=== PATIENT | male | born 1955 | race Caucasian/White ===

== ENCOUNTER 2017-10-22 19:39 | Outpatient (REF) | payer BC, SELFPAY ==
[2017-10-25 08:00] LABS: Vitamin D 25 Total 37.7 ng/ml (30-100)
== END 2017-10-22 19:59 ==
LOC: NCHCN 19:39
PROVIDERS: PCP Registered Nurse; Visit Provider Registered Nurse
DX: E83.51 Hypocalcemia (principal)
CPT/HCPCS: 82306

== ENCOUNTER 2018-03-15 11:12 | Outpatient (REF) | payer BC, SELFPAY ==
[2018-03-16 11:04] LABS: HCT 47.2 % (40.0-50.0); HGB 15.7 g/dL (13.5-17.5); Mean Corp. HGB Concentration 33.3 g/dL (32.0-36.0); Mean Corpuscular Hemoglobin 30.2 pg (27.0-33.0); Mean Corpuscular Volume 90.8 fL (80-95); Mean Platelet Volume 10.9 fL (8.0-11.0); Platelet Count 293 x1000/uL (130-400); RBC Distribution Width 13.8 % (11.8-14.1); White Blood Cell Count 7.07 k/cumm (4.4-10.8)
[2018-03-16 11:30] LABS: Anion Gap 12.1 mmol/L (3-11); BUN 21 mg/dL (7-18); CO2 25.9 mmol/L (21.0-32.0); CREATININE 1.15 mg/dL (0.70-1.30); Calcium 9.4 mg/dL (8.5-10.1); Chloride 102 mmol/L (98-107); Glucose 96 mg/dL (70-100); NT-proBNP 14 pg/mL; Potassium 4.3 mmol/L (3.5-5.1); Sodium 140 mmol/L (136-145); TSH 2.22 uIU/mL (0.358-3.74)
== END 2018-03-15 11:32 ==
LOC: NCHCN 11:12
PROVIDERS: PCP Registered Nurse; Visit Provider Registered Nurse
DX: R06.09 Other forms of dyspnea (principal)
CPT/HCPCS: 80048; 85027; 83880; 84443

== ENCOUNTER 2019-07-26 10:47 | Outpatient (REF) | payer BC, SELFPAY ==
[2019-07-26 22:27] LABS: Anion Gap 10.2 mmol/L (3-11); BUN 16 mg/dL (7-18); CO2 24.8 mmol/L (21.0-32.0); CREATININE 1.18 mg/dL (0.70-1.30); Calcium 8.9 mg/dL (8.5-10.1); Calculated LDL 116 mg/dL (<100); Chloride 106 mmol/L (98-107); Cholesterol 179 mg/dL (<200); Glucose 95 mg/dL (74-106); HDL Cholesterol 53 mg/dL (40-60); Potassium 4.5 mmol/L (3.5-5.1); Sodium 141 mmol/L (136-145); Triglyceride 54 mg/dL (<150)
[2019-07-27 17:13] LABS: Rheumatoid Factor <8.6 IU/mL (<12.0)
[2019-07-28 09:58] LABS: PSA, Screening 0.5 ng/mL (0.0-4.5)
[2019-07-28 10:12] LABS: Lyme Ab w Rflx to Lyme Confirm Negative (Negative)
[2019-07-28 15:07] LABS: ANA Interpretation Negative (Negative)
== END 2019-07-26 11:07 ==
LOC: NCHCN 10:47
PROVIDERS: PCP Registered Nurse; Visit Provider Registered Nurse
DX: E78.5 Hyperlipidemia, unspecified (principal); R94.4 Abnormal results of kidney function studies; Z00.00 Encounter for general adult medical examination without abnormal findings; Z12.5 Encounter for screening for malignant neoplasm of prostate
CPT/HCPCS: 80048; 80061; 84153; 86038; 86431; 86618

== ENCOUNTER 2020-07-31 15:14 | Outpatient (REF) | payer BC, SELFPAY ==
[2020-07-31 22:27] LABS: ALT 42 U/L (16-63); AST 28 U/L (15-37); Albumin 4.2 g/dL (3.4-5.0); Alkaline Phosphatase 66 U/L (46-116); Anion Gap 7.5 mmol/L (3-11); BUN 16 mg/dL (7-18); Bilirubin, Total 1.1 mg/dL (0.2-1.0); CO2 29.5 mmol/L (21.0-32.0); CREATININE 1.1 mg/dL (0.70-1.30); Calcium 9.4 mg/dL (8.5-10.1); Calculated LDL 135 mg/dL (<100); Chloride 104 mmol/L (98-107); Cholesterol 214 mg/dL (<200); Glucose 88 mg/dL (74-106); HDL Cholesterol 53 mg/dL (40-60); Potassium 4.6 mmol/L (3.5-5.1); Sodium 141 mmol/L (136-145); TSH 1.42 uIU/mL (0.36-3.74); Total Protein 7.2 g/dL (6.4-8.2); Triglyceride 134 mg/dL (<150)
[2020-08-01 18:07] LABS: PSA, Screening 0.6 ng/mL (0.0-4.5)
== END 2020-07-31 15:15 | disposition home or self-care (01) ==
LOC: NCHCN 15:14
PROVIDERS: PCP Registered Nurse; Visit Provider Registered Nurse
DX: Z00.00 Encounter for general adult medical examination without abnormal findings (principal); E78.5 Hyperlipidemia, unspecified; F41.8 Other specified anxiety disorders; M25.69 Stiffness of other specified joint, not elsewhere classified; Z12.5 Encounter for screening for malignant neoplasm of prostate
CPT/HCPCS: 80053; 80061; 84153; 84443

== ENCOUNTER 2020-10-30 12:26 | Outpatient (REF) | payer BC, SELFPAY ==
[2020-10-30 14:44] LABS: Calculated LDL 74 mg/dL (<100); Cholesterol 142 mg/dL (<200); HDL Cholesterol 50 mg/dL (40-60); Triglyceride 92 mg/dL (<150)
== END 2020-10-30 12:27 | disposition home or self-care (01) ==
LOC: NCHCN 12:26
PROVIDERS: PCP Registered Nurse; Visit Provider Registered Nurse
DX: E78.5 Hyperlipidemia, unspecified (principal)
CPT/HCPCS: 80061

== ENCOUNTER 2021-11-13 16:41 | Outpatient (REF) | payer BC, SELFPAY ==
[2021-11-13 15:27] LABS: Anion Gap 7.4 mmol/L (3-11); BUN 20 mg/dL (7-18); CO2 28.6 mmol/L (21.0-32.0); CREATININE 1.1 mg/dL (0.70-1.30); Calcium 9.2 mg/dL (8.5-10.1); Calculated LDL 92 mg/dL (<100); Chloride 104 mmol/L (98-107); Cholesterol 172 mg/dL (<200); Estimated GFR 74.96 (mL/min/1.73m2); Glucose 95 mg/dL (74-106); HDL Cholesterol 59 mg/dL (40-60); Potassium 4.1 mmol/L (3.5-5.1); Sodium 140 mmol/L (136-145); Triglyceride 106 mg/dL (<150)
[2021-11-13 22:32] LABS: PSA, Screening 0.7 ng/mL (<=4.5)
== END 2021-11-13 16:42 | disposition home or self-care (01) ==
LOC: NCHCN 16:41
PROVIDERS: PCP Registered Nurse; Visit Provider Registered Nurse
DX: I10 Essential (primary) hypertension (principal); E78.5 Hyperlipidemia, unspecified; Z80.42 Family history of malignant neoplasm of prostate
CPT/HCPCS: 80048; 80061; 84153

== ENCOUNTER 2022-02-05 09:59 | Outpatient (REF) | payer MEDICARE, OTHER, SELFPAY ==
[2022-02-05 14:58] LABS: Anion Gap 8.3 mmol/L (3-11); BUN 26 mg/dL (7-18); CO2 24.7 mmol/L (21.0-32.0); CREATININE 1.2 mg/dL (0.70-1.30); Calcium 8.5 mg/dL (8.5-10.1); Chloride 104 mmol/L (98-107); Estimated GFR 67.11 (mL/min/1.73m2); Glucose 179 mg/dL (74-106); Potassium 4.2 mmol/L (3.5-5.1); Sodium 137 mmol/L (136-145)
== END 2022-02-05 10:00 | disposition home or self-care (01) ==
LOC: NCHCN 09:59
PROVIDERS: PCP Registered Nurse; Visit Provider Registered Nurse
DX: I10 Essential (primary) hypertension (principal)
CPT/HCPCS: 80048

== ENCOUNTER 2022-08-04 14:40 | Outpatient (REF) | payer MEDICARE, OTHER, SELFPAY ==
--- OUTSIDE RECORDS SUMMARY | 2022-08-04 14:45 | XMS_ITS | CCD ---
Author Name Unknown Address [address] [place] [address] [phone] Organization Unknown Address [address] [place] [address] [phone] Care Team Providers Care Technical Translator Name Role Phone TIGRE ANNA Kacie Attending Physician [phone] Vital Signs Unknown or Not Available. Allergies Allergy Code Allergy Type Reaction Status ZOLOFT {Clinical monitoring unavailable} 0 Drug a llergy UNKNOWN Active Procedures Unknown or Not Available. History of Immunizations Unknown or Not Available. Problems Problem Code Start Date Resolved Date Status HTN 67582965 Active AFIB 86989208 Active HLD 41217731 Active Results Unknown or Not Available. Active Medications Unknown or Not Available. Medications Administered During Visit Unknown or Not Available. Encounters Encounter Diagnosis Diagnosis Code Start Date Achilles tendinitis, left leg M7662 Social History Smoking Status Code Start Date End Date Never smoker [id number] Patient Decision Aids Unknown or Not Available. Discharge Instructions You were admitted to [facility] on 11/26/2021 09:58 with a principal diagnosis of Achilles tendinitis, left leg You were discharged from [facility] on 01/14/2022 10:24 Should you have any questions prior to discharge, please contact a member of your healthcare team. If you have left the hospital and have any questions, please contact your primary care physician. Chief Complaint and Reason For Visit Unknown or Not Available. Function Status Unknown or Not Available. Plan of Care Unknown or Not Available. Referral/Transition of Care Unknown or Not Available.
--- OUTSIDE RECORDS SUMMARY | 2022-08-04 14:46 | XMS_ITS | CCD ---
Author Name Unknown Address [address] [place] [address] [id number] Organization Unknown Address [address] [place] [address] [id number] Care Team Providers Care Technical Aide Name Role Phone JEAN CARLOS RIVAS Attending Physician [phone] JEAN CARLOS RIVAS Rounding (Secondary) Physicia n [phone] Vital Signs Unknown or Not Available. Allergies Allergy Code Allergy Type Reaction Status ZOLOFT {Clinical monitoring unavailable} 0 Drug a llergy UNKNOWN Active Procedures Unknown or Not Available. History of Immunizations Unknown or Not Available. Problems Problem Code Start Date Resolved Date Status HTN 99275912 Active AFIB 33541594 Active HLD 85734039 Active Results Unknown or Not Available. Active Medications Unknown or Not Available. Medications Administered During Visit Unknown or Not Available. Encounters Encounter Diagnosis Diagnosis Code Start Date Achilles tendinitis, left leg M7662 Social History Smoking Status Code Start Date End Date Never smoker [id number] Patient Decision Aids Unknown or Not Available. Discharge Instructions You were admitted to [facility] on 03/23/2022 00:00 with a principal diagnosis of Achilles tendinitis, left leg You were discharged from [facility] on 03/23/2022 00:00 Should you have any questions prior to [...]
--- OUTSIDE RECORDS SUMMARY | 2022-08-04 14:46 | XMS_ITS | CCD ---
Author Name Unknown Address [address] [place] [address] [id number] Organization Unknown Address [address] [place] [address] [phone] Care Team Providers Care Ux Information Architect Name Role Phone ANNA LANDEROS Attending Physician [phone] Vital Signs Unknown or Not Available. Allergies Allergy Code Allergy Type Reaction Status ZOLOFT {Clinical monitoring unavailable} 0 Drug a llergy UNKNOWN Active Procedures Unknown or Not Available. History of Immunizations Unknown or Not Available. Problems Problem Code Start Date Resolved Date Status HTN 10390799 Active AFIB 90290283 Active HLD 80942355 Active Results Unknown or Not Available. Active Medications Unknown or Not Available. Medications Administered During Visit Unknown or Not Available. Encounters Encounter Diagnosis Diagnosis Code Start Date Pain in right shoulder [id number] 3 Social History Smoking Status Code Start Date End Date Never smoker 144676644 Patient Decision Aids Unknown or Not Available. Discharge Instructions You were admitted to [facility] on 03/20/2022 08:23 with a principal diagnosis of Pain in right shoulder You were discharged from [facility] on 04/22/2022 09:27 Should you have any questions prior to [...]
--- OUTSIDE RECORDS SUMMARY | 2022-08-04 14:46 | XMS_ITS | CCD ---
Author Name Unknown Address [address] [place] [address] [phone] Organization Unknown Address [address] [place] [address] [phone] Care Team Providers Care Volunteer Fire Fighter Name Role Phone BEATRIZ SCOTT Attending Physician [phone] BEATRIZ SCOTT Rounding (Secondary) Physician [phone] Vital Signs Unknown or Not Available. Allergies Allergy Code Allergy Type Reaction Status ZOLOFT {Clinical monitoring unavailable} 0 Drug a llergy UNKNOWN Active Procedures Unknown or Not Available. History of Immunizations Unknown or Not Available. Problems Problem Code Start Date Resolved Date Status HTN 18425293 Active AFIB 32937907 Active HLD 69981542 Active Results Unknown or Not Available. Active Medications Unknown or Not Available. Medications Administered During Visit Unknown or Not Available. Encounters Encounter Diagnosis Diagnosis Code Start Date Other forms of dyspnea R0609 2 Social History Smoking Status Code Start Date End Date Never smoker [id number] Patient Decision Aids Unknown or Not Available. Discharge Instructions You were admitted to [facility] on 01/30/2022 08:40 with a principal diagnosis of Other forms of dyspnea You were discharged from [facility] on 01/30/2022 00:00 Should you have any questions prior [...]
--- OUTSIDE RECORDS SUMMARY | 2022-08-04 14:46 | XMS_ITS | CCD ---
Author Name Unknown Address [address] [place] [address] [id number] Organization Unknown Address [address] [place] [address] [phone] Care Team Providers Care Aircraft Designer Name Role Phone RUBI MCCLELLAN Attending Physician [phone] Vital Signs Unknown or Not Available. Allergies Allergy Code Allergy Type Reaction Status ZOLOFT {Clinical monitoring unavailable} 0 Drug a llergy UNKNOWN Active Procedures Procedure Code Procedure Type Date Colsc Flx w/[place] [address] CPT 05/27/2021 History of Immunizations Unknown or Not Available. Problems Problem Code Start Date Resolved Date Status HTN 58052709 Active AFIB 99412806 Active HLD 66929435 Active Results Unknown or Not Available. Active Medications Unknown or Not Available. Medications Administered During Visit Unknown or Not Available. Encounters Encounter Diagnosis Diagnosis Code Start Date Encounter for screening for malignant neoplasm o f colon Z1211 05/27/2021 Social History Smoking Status Code Start Date End Date Never smoker [id number] Patient Decision Aids Unknown or Not Available. Discharge Instructions You were admitted to [facility] on 05/27/2021 12:09 with a principal diagnosis of Encounter for screening for malignant neoplasm of colon You had the following procedures done:Colsc Flx w/Rmvl Of Tumor Polyp Lesion Snare Tq You were discharged from [facility] on 05/27/2021 15:06 Should you have any questions prior to [...]
--- OUTSIDE RECORDS SUMMARY | 2022-08-04 14:46 | XMS_ITS | CCD ---
Author Name Unknown Address [address] [place] [address] [id number] Organization Unknown Address [address] [place] [address] [phone] Care Team Providers Care Citizen Participation Specialist Name Role Phone PO VENTURA Attending Physician [phone] PO VENTURA Er Physician 1 [phone] MANUEL Lopez Registered Nurse [phone] Vital Signs Vital Sign Value Unit Date/Time Recent/Initial ? BP Systolic 179 mmHg 12/30/2021 09:51 Initial VS BP Diastolic 100 mmHg 12/30/2021 09:51 Initia l VS Respiratory Rate 16 bpm 12/30/2021 09:58 In itial VS Heart Rate 64 bpm 12/30/2021 09:58 Initial VS O2 % BldC Oximetry 97 % 12/30/2021 09:58 Initial VS Body Temperature 35.6 degrees 12/30/2021 09:58 In itial VS BMI (Body Mass Index) 31.01 kg/m^2 12/30/2021 10: 04 Initial VS Weight Measured 210 lbs 12/30/2021 10:04 Ini tial VS Height 69 in 12/30/2021 10:04 Initial VS BSA (Body Surface Area) 2.15 m^2 12/30/2021 1 0:04 Initial VS BP Systolic 162 mmHg 12/30/2021 12:30 Most Re cent VS BP Diastolic 93 mmHg 12/30/2021 12:30 Most R ecent VS Respiratory Rate 12 bpm 12/30/2021 12:[address] Recent VS Heart Rate 54 bpm 12/30/2021 12:30 Most Rec ent VS O2 % BldC Oximetry 97 % 12/30/2021 12:30 Most Recent VS Body Temperature 36.1 degrees 12/30/2021 12:[address] Recent VS Allergies Allergy Code Allergy Type Reaction Status ZOLOFT {Clinical monitoring unavailable} 0 Drug a llergy UNKNOWN Active Procedures Unknown or Not Available. History of Immunizations Unknown or Not Available. Problems Problem Code Start Date Resolved Date Status HTN 65902913 Active AFIB 09188842 Active HLD 51683082 Active Results BASIC METABOLIC PANEL (BMP) - Collect Date/Time: 12/30/2021 10:25 Test Name Code Test Result Test Units Test Ref Rang e GLUCOSE 2345-7 129 mg/dL L=70 H=116 BUN 3094-0 17 mg/dL L=6 H=25 CREATININE 2160-0 0.97 mg/dL L=0.67 H=1.17 SODIUM SERUM 2951-2 140 mmol/L L=136 H=145 POTASSIUM SERUM 2823-3 3.8 mmol/L L=3.4 H=5 .2 CHLORIDE SERUM 2075-0 104 mmol/L L=96 H=110 CARBON DIOXIDE (CO2) 2028-9 27 mmol/L L=22 H=34 ANION GAP 73338-2 9.4 mmol/L CALCIUM SERUM 98630-1 8.5 mg/dL L=8.2 H=10. 2 AGE 66 years eGFR (non-Afr.Amer.) 71150-2 78 mL/min eGFR (Afr-Wallisian) 93846-1 94 mL/min TROPONIN HIGH SENSITIVITY* - Collect Date/Time: 12/30/2021 11:38 Test Name Code Test Result Test Units Test Ref Rang e TROPONIN HS 7.5 pg/mL L=0.0 H=60.4 Specimen seq. 1 HOUR N/A TROPONIN HIGH SENSITIVITY* - Collect Date/Time: 12/30/2021 10:25 Test Name Code Test Result Test Units Test Ref Rang e TROPONIN HS 7.3 pg/mL L=0.0 H=60.4 Specimen seq. RANDOM N/A CBC W/ DIFFERENTIAL* - Colle ct Date/Time: 12/30/2021 10:25 Test Name Code Test Result Test Units Test Ref Rang e WBC 6690-2 5.88 th/cmm L=5.00 H=10.00 NEUT % 64.9 % L=40.0 H=80.0 LYMPH % 18.4 % L=10.0 H=50.0 MONO % 40296-3 12.8 % L=2.0 H=12.0 EOS % 2.7 % L=0.0 H=8.0 BASO % 0.9 % L=0.0 H=3.0 IG % 2514-8 0.3 % L=0.0 H=1.1 NRBC % 19809-1 0.0 % L=0.0 H=0.0 NEUT abs count 751-8 3.8 th/cmm L=1.6 H=8. 4 LYMPH abs count 731-0 1.1 th/cmm L=1.5 H=4 .0 MONO abs count 742-7 0.8 th/cmm L=0.2 H=1. 0 EOS abs count 711-2 0.2 th/cmm L=0.0 H=0.5 BASO abs count 704-7 0.1 th/cmm L=0.0 H=0. 2 IG abs count 46485-2 0.0 th/cmm L=0.0 H=0.1 NRBC abs count 79647-1 0.0 mil/cmm L=0.0 H=0. 0 RBC 789-8 4.97 mil/cmm L=4.30 H=6.20 HEMOGLOBIN 718-7 15.2 gm/dL L=13.0 H=17.0 HEMATOCRIT 4544-3 45 % L=45 H=52 MCV 787-2 91 fL L=82 H=92 MCH 785-6 30.6 pg L=27.0 H=31.0 MCHC 786-4 33.7 % L=32.0 H=36.0 RDW-SD 788-0 42.1 fL L=39.0 H=49.0 PLATELET COUNT 777-3 245 th/cmm L=150 H=45 0 Active Medications Medications Administered During Visit Medication Dose Units Frequency Route Date/Time of Last Dose ASPIRIN TABLET CHEWABLE: 81MG 324 MG X1 CHEW 12/30/2021 10:22 Encounters Encounter Diagnosis Diagnosis Code Start Date Shortness of breath R0602 12/30/2021 Social History Smoking Status Code Start Date End Date Never smoker [id number] Patient Decision Aids Unknown or Not Available. Discharge Instructions You were admitted to [facility] on 12/30/2021 09:48 with a principal diagnosis of Shortness of breath You had the following tests done:TROPONIN HIGH SENSITIVITY*BASIC METABOLIC PANEL (BMP)CBC W/ DIFFERENTIAL*TROPONIN HIGH SENSITIVITY* You were discharged from [facility] on 12/30/2021 12:35 Should you have any questions prior to discharge, please contact a member of your healthcare team. If you have left the hospital and have any questions, please contact your primary care physician. Chief Complaint and Reason For Visit Chief Complaint Date of Onset SOB HIGH BLOOD PPRESSURE Function Status Unknown or Not Available. Plan of Care Unknown or Not Available. Referral/Transition of Care Unknown or Not Available.
--- OUTSIDE RECORDS SUMMARY | 2022-08-04 14:46 | XMS_ITS | CCD ---
Author Name Unknown Address [address] [place] [address] [phone] Organization Unknown Address [address] [place] [address] [phone] Care Team Providers Care Audio Specialist Name Role Phone ANNA LANDEROS Attending Physician [phone] Vital Signs Unknown or Not Available. Allergies Allergy Code Allergy Type Reaction Status ZOLOFT {Clinical monitoring unavailable} 0 Drug a llergy UNKNOWN Active Procedures Unknown or Not Available. History of Immunizations Unknown or Not Available. Problems Problem Code Start Date Resolved Date Status HTN 42310022 Active AFIB 82839791 Active HLD 14332043 Active Results Unknown or Not Available. Active Medications Unknown or Not Available. Medications Administered During Visit Unknown or Not Available. Encounters Unknown or Not Available. Social History Smoking Status Code Start Date End Date Never smoker 425721205 Patient Decision Aids Unknown or Not Available. Discharge Instructions You were admitted to [facility] on 04/17/2022 09:21 You were discharged from [facility] Should you have any questions prior to discharge, please contact a member of your healthcare team. If you have left the hospital and have any questions, please contact your primary care physician. Chief Complaint and Reason For Visit Chief Complaint Date of Onset LT KNEE PAIN Function Status Unknown or Not Available. Plan of Care Unknown or Not Available. Referral/Transition of Care Unknown or Not Available.
[2022-08-04 14:48] LABS: Anion Gap 9.6 mmol/L (3-11); BUN 20 mg/dL (7-18); CO2 25.4 mmol/L (21.0-32.0); CREATININE 1.1 mg/dL (0.70-1.30); Calcium 8.9 mg/dL (8.5-10.1); Chloride 105 mmol/L (98-107); Glucose 144 mg/dL (74-106); Potassium 4.4 mmol/L (3.5-5.1); Sodium 140 mmol/L (136-145)
== END 2022-08-04 14:41 | disposition home or self-care (01) ==
LOC: NCHCN 14:40
PROVIDERS: PCP Registered Nurse; Visit Provider Registered Nurse
DX: I10 Essential (primary) hypertension (principal)
CPT/HCPCS: 80048

== ENCOUNTER 2022-11-16 16:30 | Outpatient (REF) | payer MEDICARE, OTHER, SELFPAY ==
[2022-11-16 23:01] LABS: Calculated LDL 89 mg/dL (<100); Cholesterol 157 mg/dL (<200); Glucose 95 mg/dL (74-106); HDL Cholesterol 56 mg/dL (40-60); Triglyceride 62 mg/dL (<150)
[2022-11-17 18:48] LABS: PSA, Screening 1.3 ng/mL (<=4.5)
== END 2022-11-16 16:31 | disposition home or self-care (01) ==
LOC: NCHCN 16:30
PROVIDERS: PCP Registered Nurse; Visit Provider Family Medicine
DX: E78.5 Hyperlipidemia, unspecified (principal); R73.09 Other abnormal glucose; Z12.5 Encounter for screening for malignant neoplasm of prostate
CPT/HCPCS: 80061; 82947; 84153

== ENCOUNTER 2023-11-05 15:40 | Outpatient (REF) | payer MEDICARE, OTHER, SELFPAY ==
[2023-11-05 21:28] LABS: HGB 14.7 g/dL (13.5-17.5); MCH 30.1 pg (27.0-33.0); MCV 94 fL (80-95); MPV 10.5 fL (8.0-11.0); Platelet Count 266 10^3/uL (130-400); RBC 4.88 10^6/uL (4.36-5.78); RDW-SD 45.4 fL; WBC 8.66 10^3/uL (4.4-10.8)
[2023-11-05 22:10] LABS: Anion Gap 8.8 mmol/L (3-11); BUN 25 mg/dL (7-18); CO2 25.2 mmol/L (21.0-32.0); CREATININE 1.1 mg/dL (0.70-1.30); Calcium 9.2 mg/dL (8.5-10.1); Chloride 107 mmol/L (98-107); Estimated GFR 74.04 (mL/min/1.73m2); Glucose 85 mg/dL (74-106); Potassium 4.6 mmol/L (3.5-5.1); Sodium 141 mmol/L (136-145); Vitamin B12 1028 pg/mL (193-986); Vitamin D 25 Total 38.8 ng/mL (30-100)
[2023-11-05 22:12] LABS: Folate > 20.0 ng/mL (8.6-20.0)
== END 2023-11-05 15:41 | disposition home or self-care (01) ==
LOC: NCHCN 15:40
PROVIDERS: PCP Registered Nurse; Visit Provider Family Medicine
DX: E55.9 Vitamin D deficiency, unspecified (principal); M79.2 Neuralgia and neuritis, unspecified; I10 Essential (primary) hypertension
CPT/HCPCS: 80048; 82306; 85027; 82607; 82746

== ENCOUNTER 2023-12-30 21:40 | Outpatient (REF) | payer MEDICARE, OTHER, SELFPAY ==
[2023-12-30 21:46] LABS: Calculated LDL 72 mg/dL (<100); Cholesterol 160 mg/dL (<200); HDL Cholesterol 52 mg/dL (40-60); Triglyceride 182 mg/dL (<150)
[2023-12-31 18:02] LABS: PSA, Screening 0.6 ng/mL (<=4.5)
== END 2023-12-30 21:41 | disposition home or self-care (01) ==
LOC: NCHCN 21:40
PROVIDERS: PCP Registered Nurse; Visit Provider Family Medicine
DX: E78.5 Hyperlipidemia, unspecified (principal); Z12.5 Encounter for screening for malignant neoplasm of prostate
CPT/HCPCS: 80061; 84153

== ENCOUNTER 2025-01-03 10:27 | Outpatient (REF) | payer MEDICARE, OTHER, SELFPAY ==
[2025-01-03 15:16] LABS: Anion Gap 8.5 mmol/L (3-11); BUN 21 mg/dL (9-23); CO2 26.5 mmol/L (20.0-31.0); Calcium 9.0 mg/dL (8.3-10.6); Chloride 107 mmol/L (98-107); Cholesterol 147 mg/dL (<200); Glucose 98 mg/dL (74-106); HDL Cholesterol 51 mg/dL (>40); Potassium 4.2 mmol/L (3.5-5.1); Sodium 142 mmol/L (136-145)
[2025-01-03 22:57] LABS: PSA, Screening 0.7 ng/mL (<=4.5)
== END 2025-01-03 10:28 | disposition home or self-care (01) ==
LOC: NCHCN 10:27
PROVIDERS: PCP Registered Nurse; Visit Provider Family Medicine
DX: Z12.5 Encounter for screening for malignant neoplasm of prostate (principal); E78.5 Hyperlipidemia, unspecified; I10 Essential (primary) hypertension
CPT/HCPCS: 80048; 80061; 84153